=== PATIENT | female | born 1945 | race Caucasian/White ===

== ENCOUNTER → 2016-09-08 | Outpatient (CLI) | payer MEDICARE, OTHER ==
[~2016-09-08] MED LIST: ACETAMINOPHEN-H1 TA2 PO; ADVAIR 250/501 EA; ADVAIR 250/501 EA INH; ALBUTEROL SULFATE; ALBUTEROL0.09 MG/A2 INH; ALBUTEROL0.09 MG/A3 INH; AMOXIL500 MG PO; AUGMENTIN 875 M1 TAB PO; CALTRATE 600+D1 EACH PO; CALTRATE PLUS1 TAB; CALTRATE PLUS1 TAB PO; CARDIZEM; CARDIZEM CD180 MG PO; CARDIZEM CD240 MG PO; CARDIZEM LA240 MG PO; CEROVITE ADVANC1 TAB PO; CIPRO XR500 MG PO; COUMADIN3 M1 PO; Coumadin3 MG PO; ENALAPRIL20 MG PO; FERROUS SULFAT325 MG PO; FLEXERIL10 MG; FLEXERIL10 MG PO; GLIPIZIDE10 MG PO; HUMULIN R100 U/ML; HUMULIN R100 U/ML SC; HYDROCODONE BIT1 T11 PO; KLOR-CON 1010 MEQ PO; LANOXIN0.125 MG PO; LASIX40 MG PO; LEUCOVORIN CALCI5 MG PO; MEDROL DOSEPAK4 MG PO; METFORMIN HCL1000 MG PO; METHOTREXATE2.5 M1; METHOTREXATE2.5 M1 PO; METHOTREXATE2.5 MG PO; NOVOLIN 701 UNIT/0.0 SC; NOVOLOG MIX 70/33 ML SC; PERCOCET 325 MG1 TA2 PO; PRILOSEC20 MG PO; ROBITUSSIN AC 110 ML PO; VENTOLIN 02.5 MG/3 M NEB; VICODIN 5/500 505 MG; VITAMIN D2000 IU PO; Ventolin 02.5 MG/3 M INH; WELLCOVORIN5 MG PO; [UNRECOGNIZED DRUG - OTHER]
[2016-09-08 12:17] LABS: BASO # 0.1 10*3/uL (0.0-0.1); BASO % 0.5 % (0.0-1.0); EOS # 0.2 10*3/uL (0.0-0.4); EOS % 2.3 % (1.0-4.0); HEMATOCRIT 39.2 % (37.0-47.0); HEMOGLOBIN 12.2 g/dl (12.0-16.0); IG # 0.1 10*3/uL (0.0-0.1); LYMPH # 1.4 10*3/uL (1.3-4.4); LYMPH % 14.8 % (27.0-41.0); MEAN CELL VOLUME 88.9 fl (81.0-99.0); MEAN CORPUSCULAR HGB 27.7 pg (27.0-31.0); MEAN CORPUSCULAR HGB CONC 31.1 g/dl (33.0-37.0); MEAN PLATELET VOLUME 9.5 fl (9.6-12.3); MONO # 0.9 10*3/uL (0.1-1.0); MONO % 9.5 % (3.0-9.0); NEUT # 6.7 10*3/uL (2.3-7.9); NEUT % 72.4 % (47.0-73.0); PLATELET COUNT AUTOMATED 220 10*3/uL (130-400); RED BLOOD COUNT 4.41 10*6/uL (4.10-5.10); RED CELL DISTRI WIDTH 17.2 % (0-14.5); WHITE BLOOD COUNT 9.2 10*3/uL (4.8-10.8)
[2016-09-08 12:44] LABS: POTASSIUM 4.4 mmol/L (3.5-5.1)
== END | disposition home or self-care (01) ==
LOC: LAB 12:01
PROVIDERS: Specialist
DX: R94.4 Abnormal results of kidney function studies (principal); M05.79 Rheumatoid arthritis with rheumatoid factor of multiple sites without organ or systems involvement; Z79.899 Other long term (current) drug therapy

== ENCOUNTER → 2016-12-20 | Outpatient (CLI) | payer MEDICARE, OTHER ==
[2016-12-20 15:10] LABS: BASO # 0.1 10*3/uL (0.0-0.1); BASO % 0.6 % (0.0-1.0); EOS # 0.2 10*3/uL (0.0-0.4); EOS % 1.9 % (1.0-4.0); HEMATOCRIT 39.2 % (37.0-47.0); HEMOGLOBIN 12.4 g/dl (12.0-16.0); IG # 0.1 10*3/uL (0.0-0.1); LYMPH # 1.7 10*3/uL (1.3-4.4); LYMPH % 18.6 % (27.0-41.0); MEAN CELL VOLUME 86.9 fl (81.0-99.0); MEAN CORPUSCULAR HGB 27.5 pg (27.0-31.0); MEAN CORPUSCULAR HGB CONC 31.6 g/dl (33.0-37.0); MEAN PLATELET VOLUME 10.2 fl (9.6-12.3); MONO # 0.9 10*3/uL (0.1-1.0); MONO % 9.9 % (3.0-9.0); NEUT # 6.1 10*3/uL (2.3-7.9); NEUT % 67.9 % (47.0-73.0); PLATELET COUNT AUTOMATED 207 10*3/uL (130-400); RED BLOOD COUNT 4.51 10*6/uL (4.10-5.10); RED CELL DISTRI WIDTH 16.9 % (0-14.5)
[2016-12-20 15:27] LABS: POTASSIUM 4.1 mmol/L (3.5-5.1)
== END | disposition home or self-care (01) ==
LOC: LAB 14:43
PROVIDERS: Specialist
DX: R94.4 Abnormal results of kidney function studies (principal)

== ENCOUNTER → 2017-01-18 | Outpatient (CLI) | payer MEDICARE, OTHER | END | disposition home or self-care (01) | LOC: MRI 10:39 → MAMMO 01-27 13:30 → MRI 01-30 10:00 | DX: M48.06 Spinal stenosis, lumbar region (principal); M51.26 Other intervertebral disc displacement, lumbar region; R29.6 Repeated falls ==

== ENCOUNTER → 2017-01-26 | Outpatient (CLI) | payer MEDICARE, OTHER | END | disposition home or self-care (01) | LOC: MAMMO 12:59 | DX: Z12.31 Encounter for screening mammogram for malignant neoplasm of breast (principal) ==

== ENCOUNTER → 2017-03-23 | Outpatient (CLI) | payer MEDICARE, OTHER ==
[2017-03-23 12:39] LABS: BASO # 0.1 10*3/uL (0.0-0.1); BASO % 0.4 % (0.0-1.0); EOS # 0.2 10*3/uL (0.0-0.4); EOS % 1.6 % (1.0-4.0); HEMATOCRIT 40.1 % (37.0-47.0); HEMOGLOBIN 12.6 g/dl (12.0-16.0); LYMPH # 1.9 10*3/uL (1.3-4.4); LYMPH % 14.4 % (27.0-41.0); MEAN CELL VOLUME 89.7 fl (81.0-99.0); MEAN CORPUSCULAR HGB 28.2 pg (27.0-31.0); MEAN CORPUSCULAR HGB CONC 31.4 g/dl (33.0-37.0); MEAN PLATELET VOLUME 10.5 fl (9.6-12.3); NEUT # 9.8 10*3/uL (2.3-7.9); NEUT % 74.8 % (47.0-73.0); PLATELET COUNT AUTOMATED 227 10*3/uL (130-400); RED BLOOD COUNT 4.47 10*6/uL (4.10-5.10); RED CELL DISTRI WIDTH 17.1 % (0-14.5)
[2017-03-23 13:00] LABS: CREATININE 1.03 mg/dL (0.55-1.02); SGOT/AST 13 IU/L (3-35); SGPT/ALT 19 U/L (12-78)
== END | disposition home or self-care (01) ==
LOC: LAB 11:55
PROVIDERS: Specialist
DX: M06.841 Other specified rheumatoid arthritis, right hand (principal); M06.842 Other specified rheumatoid arthritis, left hand; Z79.899 Other long term (current) drug therapy

== ENCOUNTER → 2017-06-21 | Outpatient (CLI) | payer MEDICARE, OTHER ==
[2017-06-21 14:20] LABS: BASO # 0.1 10*3/uL (0.0-0.1); BASO % 0.6 % (0.0-1.0); EOS # 0.2 10*3/uL (0.0-0.4); EOS % 1.5 % (1.0-4.0); HEMATOCRIT 39.9 % (37.0-47.0); HEMOGLOBIN 12.8 g/dl (12.0-16.0); LYMPH # 1.5 10*3/uL (1.3-4.4); MEAN CELL VOLUME 91.1 fl (81.0-99.0); MEAN CORPUSCULAR HGB 29.2 pg (27.0-31.0); MEAN CORPUSCULAR HGB CONC 32.1 g/dl (33.0-37.0); MEAN PLATELET VOLUME 10.7 fl (9.6-12.3); MONO # 0.9 10*3/uL (0.1-1.0); NEUT # 8.7 10*3/uL (2.3-7.9); NEUT % 75.7 % (47.0-73.0); PLATELET COUNT AUTOMATED 235 10*3/uL (130-400); RED BLOOD COUNT 4.38 10*6/uL (4.10-5.10); RED CELL DISTRI WIDTH 16.5 % (0-14.5); WHITE BLOOD COUNT 11.5 10*3/uL (4.8-10.8)
[2017-06-21 14:32] LABS: CREATININE 1.17 mg/dL (0.55-1.02)
== END | disposition home or self-care (01) ==
LOC: LAB 12:59
PROVIDERS: Specialist
DX: M06.9 Rheumatoid arthritis, unspecified (principal); Z79.899 Other long term (current) drug therapy

== ENCOUNTER 2017-07-07 10:13 | Emergency (ER) | payer MEDICARE, OTHER ==
[~2017-07-07] VITALS: Ht 162.5 cm; Wt 108.4 kg
[2017-07-07 10:37] LABS: BASO % 0.3 % (0.0-1.0); HEMATOCRIT 37.3 % (37.0-47.0); HEMOGLOBIN 12.1 g/dl (12.0-16.0); LYMPH # 0.3 10*3/uL (1.3-4.4); LYMPH % 4.7 % (27.0-41.0); MEAN CORPUSCULAR HGB 28.5 pg (27.0-31.0); MEAN CORPUSCULAR HGB CONC 32.4 g/dl (33.0-37.0); MEAN PLATELET VOLUME 10.1 fl (9.6-12.3); MONO # 0.9 10*3/uL (0.1-1.0); MONO % 14.2 % (3.0-9.0); NEUT # 5.1 10*3/uL (2.3-7.9); NEUT % 79.4 % (47.0-73.0); PLATELET COUNT AUTOMATED 173 10*3/uL (130-400); RED BLOOD COUNT 4.24 10*6/uL (4.10-5.10); RED CELL DISTRI WIDTH 16.3 % (0-14.5); WHITE BLOOD COUNT 6.4 10*3/uL (4.8-10.8)
[2017-07-07 10:43] LABS: INTERNATIONAL NORM RATIO 1.7 (2.0-3.5)
[2017-07-07 10:53] LABS: ALBUMIN 3.2 gm/dl (3.1-4.5); ALKALINE PHOSPHATASE 88 U/L (45-117); BUN 16 mg/dl (7-24); CHLORIDE 99 mmol/L (98-107); SGOT/AST 27 IU/L (3-35); SGPT/ALT 20 U/L (12-78); SODIUM 134 mmol/L (136-145); TOTAL PROTEIN 7.6 gm/dL (6.4-8.2)
[2017-07-07 10:54] LABS: TROPONIN I 0.022 ng/ml (<0.045)
[2017-07-07 11:05] LABS: DIGOXIN 0.48 ng/ml (0.8-2.0)
[2017-07-07 11:44] LABS: BILIRUBIN NEGATIVE (NEGATIVE); BLOOD 2+ (NEGATIVE); CLARITY SL CLOUDY (CLEAR); COLOR YELLOW (YELLOW); GLUCOSE NEGATIVE (NEGATIVE); KETONE TRACE (NEGATIVE); LEUKO ESTERASE NEGATIVE (NEGATIVE); NITRITE NEGATIVE (NEGATIVE); SPECIFIC GRAVITY 1.015 (1.005-1.030); UROBILINOGEN 0.2 E.U./dl (0.2-1.0)
[2017-07-07 12:08] LABS: BACTERIA 2+; WBC 0-2 wbc/hpf (0-5)
[2017-07-07] MEDS ORDERED: TAMIFLU 75MG CA75 MG PO (13:31)
[2017-07-07 14:00] VITALS: BP 168/89
== END 2017-07-07 13:59 | disposition home or self-care (01) ==
LOC: ED 10:13
PROVIDERS: Nurse Practitioner Family
DX: J10.1 Influenza due to other identified influenza virus with other respiratory manifestations (principal); G89.29 Other chronic pain; M25.511 Pain in right shoulder; Z98.890 Other specified postprocedural states; Z96.652 Presence of left artificial knee joint; Z79.899 Other long term (current) drug therapy; Z79.01 Long term (current) use of anticoagulants; Z79.4 Long term (current) use of insulin; Z88.6 Allergy status to analgesic agent; Z91.041 Radiographic dye allergy status; Z88.1 Allergy status to other antibiotic agents

== ENCOUNTER → 2017-09-20 | Outpatient (CLI) | payer MEDICARE, OTHER ==
[~2017-09-20] MED LIST changes: +TAMIFLU 75MG CA75 MG PO
[2017-09-20 15:43] LABS: BASO # 0.1 10*3/uL (0.0-0.1); BASO % 0.6 % (0.0-1.0); EOS # 0.2 10*3/uL (0.0-0.4); EOS % 1.8 % (1.0-4.0); HEMOGLOBIN 12.7 g/dl (12.0-16.0); LYMPH # 2.3 10*3/uL (1.3-4.4); LYMPH % 17.7 % (27.0-41.0); MEAN CELL VOLUME 91.7 fl (81.0-99.0); MEAN CORPUSCULAR HGB 29.1 pg (27.0-31.0); MEAN CORPUSCULAR HGB CONC 31.8 g/dl (33.0-37.0); MEAN PLATELET VOLUME 10.1 fl (9.6-12.3); MONO # 1.2 10*3/uL (0.1-1.0); MONO % 9.1 % (3.0-9.0); NEUT # 9.1 10*3/uL (2.3-7.9); NEUT % 69.4 % (47.0-73.0); PLATELET COUNT AUTOMATED 249 10*3/uL (130-400); RED BLOOD COUNT 4.36 10*6/uL (4.10-5.10); RED CELL DISTRI WIDTH 17.1 % (0-14.5); WHITE BLOOD COUNT 13.1 10*3/uL (4.8-10.8)
[2017-09-20 16:01] LABS: CREATININE 1.09 mg/dL (0.55-1.02)
== END | disposition home or self-care (01) ==
LOC: LAB 13:41 → MRI 14:00
PROVIDERS: Specialist
DX: M48.061 Spinal stenosis, lumbar region without neurogenic claudication (principal); M43.16 Spondylolisthesis, lumbar region; M47.896 Other spondylosis, lumbar region; M51.26 Other intervertebral disc displacement, lumbar region

== ENCOUNTER → 2017-12-26 | Outpatient (CLI) | payer MEDICARE, OTHER ==
[2017-12-26 15:00] LABS: BASO # 0.1 10*3/uL (0.0-0.1); BASO % 0.5 % (0.0-1.0); EOS # 0.2 10*3/uL (0.0-0.4); EOS % 1.7 % (1.0-4.0); HEMATOCRIT 39.1 % (37.0-47.0); HEMOGLOBIN 12.1 g/dl (12.0-16.0); LYMPH # 1.7 10*3/uL (1.3-4.4); LYMPH % 14.7 % (27.0-41.0); MEAN CELL VOLUME 94.4 fl (81.0-99.0); MEAN CORPUSCULAR HGB 29.2 pg (27.0-31.0); MEAN CORPUSCULAR HGB CONC 30.9 g/dl (33.0-37.0); MEAN PLATELET VOLUME 9.9 fl (9.6-12.3); MONO % 8.7 % (3.0-9.0); NEUT # 8.6 10*3/uL (2.3-7.9); NEUT % 72.8 % (47.0-73.0); PLATELET COUNT AUTOMATED 218 10*3/uL (130-400); RED BLOOD COUNT 4.14 10*6/uL (4.10-5.10); RED CELL DISTRI WIDTH 16.2 % (0-14.5); WHITE BLOOD COUNT 11.7 10*3/uL (4.8-10.8)
[2017-12-26 15:21] LABS: CREATININE 1.1 mg/dL (0.55-1.02)
== END | disposition home or self-care (01) ==
LOC: LAB 14:44
PROVIDERS: Specialist
DX: M06.9 Rheumatoid arthritis, unspecified (principal); Z79.899 Other long term (current) drug therapy

== ENCOUNTER → 2018-04-11 | Outpatient (CLI) | payer MEDICARE, OTHER ==
[2018-04-11 13:47] LABS: BASO # 0.1 10*3/uL (0.0-0.1); BASO % 0.6 % (0.0-1.0); EOS # 0.2 10*3/uL (0.0-0.4); EOS % 1.9 % (1.0-4.0); HEMATOCRIT 40.1 % (37.0-47.0); HEMOGLOBIN 12.3 g/dl (12.0-16.0); LYMPH # 1.6 10*3/uL (1.3-4.4); LYMPH % 14.9 % (27.0-41.0); MEAN CORPUSCULAR HGB 28.5 pg (27.0-31.0); MEAN CORPUSCULAR HGB CONC 30.7 g/dl (33.0-37.0); MEAN PLATELET VOLUME 10.5 fl (9.6-12.3); MONO % 9.1 % (3.0-9.0); NEUT # 7.6 10*3/uL (2.3-7.9); NEUT % 72.4 % (47.0-73.0); PLATELET COUNT AUTOMATED 238 10*3/uL (130-400); RED BLOOD COUNT 4.31 10*6/uL (4.10-5.10); RED CELL DISTRI WIDTH 16.5 % (0-14.5); WHITE BLOOD COUNT 10.5 10*3/uL (4.8-10.8)
[2018-04-11 14:08] LABS: CREATININE 1.11 mg/dL (0.55-1.02)
== END | disposition home or self-care (01) ==
LOC: LAB 13:03
PROVIDERS: Specialist
DX: M05.79 Rheumatoid arthritis with rheumatoid factor of multiple sites without organ or systems involvement (principal)

== ENCOUNTER → 2018-05-21 | Outpatient (CLI) | payer MEDICARE, OTHER ==
[2018-05-21 10:58] LABS: BASO # 0.1 10*3/uL (0.0-0.1); BASO % 0.8 % (0.0-1.0); EOS # 0.2 10*3/uL (0.0-0.4); EOS % 2.2 % (1.0-4.0); HEMATOCRIT 38.8 % (37.0-47.0); HEMOGLOBIN 12.3 g/dl (12.0-16.0); LYMPH # 1.5 10*3/uL (1.3-4.4); LYMPH % 14.5 % (27.0-41.0); MEAN CORPUSCULAR HGB 28.5 pg (27.0-31.0); MEAN CORPUSCULAR HGB CONC 31.7 g/dl (33.0-37.0); MEAN PLATELET VOLUME 10.2 fl (9.6-12.3); MONO # 0.7 10*3/uL (0.1-1.0); MONO % 7.2 % (3.0-9.0); NEUT # 7.6 10*3/uL (2.3-7.9); NEUT % 74.1 % (47.0-73.0); PLATELET COUNT AUTOMATED 243 10*3/uL (130-400); RED BLOOD COUNT 4.31 10*6/uL (4.10-5.10); RED CELL DISTRI WIDTH 16.6 % (0-14.5); WHITE BLOOD COUNT 10.3 10*3/uL (4.8-10.8)
[2018-05-21 11:28] LABS: ALBUMIN 3.1 gm/dl (3.1-4.5); CREATININE 1.11 mg/dL (0.55-1.02)
[2018-05-21 11:35] LABS: FREE T4 1.28 ng/dl (0.76-1.46); THYROID STIM HORMONE (HS) 1.65 uIU/ml (0.358-4.75); TOTAL PROTEIN 7.8 gm/dL (6.4-8.2)
[2018-05-21 11:51] LABS: VITAMIN D, 25-HYDROXY 54.4 ng/mL (30-100)
[2018-05-22 09:06] LABS: HEP B CORE AB TOTAL 006718 Negative (Negative); HEPATITIS B SURFACE AB 006395 Non Reactive (.); HEPATITIS B SURFACE AG Negative (Negative); HEPATITIS Be ANTIGEN 006619 Negative (Negative); HEPATITIS C AB 0.1 (0.0-0.9)
[2018-05-22 16:14] LABS: AB TO HEPATITIS Be AG 006635 Negative (Negative)
== END | disposition home or self-care (01) ==
LOC: LAB 10:12
PROVIDERS: Internal Medicine; Specialist
DX: M05.79 Rheumatoid arthritis with rheumatoid factor of multiple sites without organ or systems involvement (principal); E11.22 Type 2 diabetes mellitus with diabetic chronic kidney disease; I48.2 Chronic atrial fibrillation; N18.3 Chronic kidney disease, stage 3 (moderate); N39.0 Urinary tract infection, site not specified; R60.0 Localized edema; Z79.899 Other long term (current) drug therapy

== ENCOUNTER → 2018-08-30 | Outpatient (CLI) | payer MEDICARE, OTHER ==
[2018-08-30 12:50] LABS: BASO # 0.1 10*3/uL (0.0-0.1); BASO % 0.6 % (0.0-1.0); EOS # 0.3 10*3/uL (0.0-0.4); HEMATOCRIT 41.4 % (37.0-47.0); HEMOGLOBIN 12.7 g/dl (12.0-16.0); LYMPH # 1.6 10*3/uL (1.3-4.4); LYMPH % 17.2 % (27.0-41.0); MEAN CELL VOLUME 93.2 fl (81.0-99.0); MEAN CORPUSCULAR HGB 28.6 pg (27.0-31.0); MEAN CORPUSCULAR HGB CONC 30.7 g/dl (33.0-37.0); MEAN PLATELET VOLUME 9.7 fl (9.6-12.3); MONO # 1.2 10*3/uL (0.1-1.0); MONO % 12.4 % (3.0-9.0); NEUT # 6.3 10*3/uL (2.3-7.9); NEUT % 66.4 % (47.0-73.0); PLATELET COUNT AUTOMATED 214 10*3/uL (130-400); RED BLOOD COUNT 4.44 10*6/uL (4.10-5.10); RED CELL DISTRI WIDTH 17.2 % (0-14.5); WHITE BLOOD COUNT 9.6 10*3/uL (4.8-10.8)
[2018-08-30 13:15] LABS: CREATININE 1.22 mg/dL (0.55-1.02)
== END | disposition home or self-care (01) ==
LOC: LAB 12:30
PROVIDERS: Specialist
DX: M05.79 Rheumatoid arthritis with rheumatoid factor of multiple sites without organ or systems involvement (principal); I48.91 Unspecified atrial fibrillation

== ENCOUNTER → 2018-10-04 | Outpatient (CLI) | payer MEDICARE, OTHER ==
[2018-10-04 11:12] LABS: BASO # 0.1 10*3/uL (0.0-0.1); BASO % 0.6 % (0.0-1.0); EOS # 0.3 10*3/uL (0.0-0.4); EOS % 2.9 % (1.0-4.0); LYMPH # 1.7 10*3/uL (1.3-4.4); MEAN CELL VOLUME 91.9 fl (81.0-99.0); MEAN CORPUSCULAR HGB 27.8 pg (27.0-31.0); MEAN CORPUSCULAR HGB CONC 30.2 g/dl (33.0-37.0); MEAN PLATELET VOLUME 10.5 fl (9.6-12.3); MONO # 1.2 10*3/uL (0.1-1.0); MONO % 11.7 % (3.0-9.0); NEUT # 7.2 10*3/uL (2.3-7.9); PLATELET COUNT AUTOMATED 210 10*3/uL (130-400); RED BLOOD COUNT 4.68 10*6/uL (4.10-5.10); RED CELL DISTRI WIDTH 16.8 % (0-14.5); WHITE BLOOD COUNT 10.6 10*3/uL (4.8-10.8)
[2018-10-04 11:32] LABS: CREATININE 1.13 mg/dL (0.55-1.02)
== END | disposition home or self-care (01) ==
LOC: LAB 10:40
PROVIDERS: Specialist
DX: I48.91 Unspecified atrial fibrillation (principal); M05.79 Rheumatoid arthritis with rheumatoid factor of multiple sites without organ or systems involvement

== ENCOUNTER → 2018-12-27 | Outpatient (CLI) | payer MEDICARE, OTHER ==
[2018-12-27 12:37] LABS: BASO # 0.1 10*3/uL (0.0-0.1); BASO % 0.5 % (0.0-1.0); EOS # 0.3 10*3/uL (0.0-0.4); EOS % 2.2 % (1.0-4.0); HEMATOCRIT 41.5 % (37.0-47.0); HEMOGLOBIN 12.9 g/dl (12.0-16.0); LYMPH # 1.8 10*3/uL (1.3-4.4); LYMPH % 15.4 % (27.0-41.0); MEAN CELL VOLUME 93.9 fl (81.0-99.0); MEAN CORPUSCULAR HGB 29.2 pg (27.0-31.0); MEAN CORPUSCULAR HGB CONC 31.1 g/dl (33.0-37.0); MEAN PLATELET VOLUME 10.1 fl (9.6-12.3); MONO # 1.2 10*3/uL (0.1-1.0); NEUT # 8.2 10*3/uL (2.3-7.9); NEUT % 70.8 % (47.0-73.0); PLATELET COUNT AUTOMATED 225 10*3/uL (130-400); RED BLOOD COUNT 4.42 10*6/uL (4.10-5.10); RED CELL DISTRI WIDTH 17.4 % (0-14.5); WHITE BLOOD COUNT 11.6 10*3/uL (4.8-10.8)
[2018-12-27 12:41] LABS: CREATININE 1.23 mg/dL (0.55-1.02)
== END | disposition home or self-care (01) ==
LOC: LAB 11:47
PROVIDERS: Specialist
DX: I48.91 Unspecified atrial fibrillation (principal); M05.79 Rheumatoid arthritis with rheumatoid factor of multiple sites without organ or systems involvement; Z79.899 Other long term (current) drug therapy

== ENCOUNTER → 2019-02-12 | Outpatient (CLI) | payer MEDICARE, OTHER ==
[2019-02-12 14:18] LABS: HEMATOCRIT 42.2 % (37.0-47.0); HEMOGLOBIN 13.7 g/dl (12.0-16.0); MEAN CELL VOLUME 94.2 fl (81.0-99.0); MEAN CORPUSCULAR HGB 30.6 pg (27.0-31.0); MEAN CORPUSCULAR HGB CONC 32.5 g/dl (33.0-37.0); MEAN PLATELET VOLUME 10.9 fl (9.6-12.3); PLATELET COUNT AUTOMATED 252 10*3/uL (130-400); RED BLOOD COUNT 4.48 10*6/uL (4.10-5.10); RED CELL DISTRI WIDTH 16.8 % (0-14.5); WHITE BLOOD COUNT 11.6 10*3/uL (4.8-10.8)
[2019-02-12 14:25] LABS: CREATININE 1.33 mg/dL (0.55-1.02)
[2019-02-12 14:42] LABS: BASOPHILS 1 % (0-1); PLATELET SUFFICIENCY NORMAL (NORMAL); TOTAL CELLS COUNTED 100 #CELLS
== END | disposition home or self-care (01) ==
LOC: LAB 13:23
PROVIDERS: Specialist
DX: I48.91 Unspecified atrial fibrillation (principal); M05.79 Rheumatoid arthritis with rheumatoid factor of multiple sites without organ or systems involvement; Z79.899 Other long term (current) drug therapy

== ENCOUNTER → 2019-02-21 | Outpatient (CLI) | payer MEDICARE, OTHER, MEDICAID ==
[~2019-02-21] MED LIST changes: +BUMETANIDE1 MG PO; +HUMALOG 751 UNIT/0.0 SC; +KLOR-CON 1010 ME1 PO; -KLOR-CON 1010 MEQ PO; -LANOXIN0.125 MG PO; +LANOXIN250 MCG PO; +PROTONIX40 MG PO
[2019-02-21 16:33] LABS: CREATININE 1.27 mg/dL (0.55-1.02); POTASSIUM 4.3 mmol/L (3.5-5.1)
== END | disposition home or self-care (01) ==
LOC: LAB 15:37
PROVIDERS: Specialist
DX: R79.89 Other specified abnormal findings of blood chemistry (principal); R06.00 Dyspnea, unspecified; I51.7 Cardiomegaly

== ENCOUNTER 2019-02-28 12:06 | Inpatient (IN) | payer MEDICARE, OTHER ==
[~2019-02-28] VITALS: Ht 162.5 cm; Wt 106.6 kg
--- NOTE | ~2019-02-28 | EKG ---
[place], [place] ELECTROCARDIOGRAM REPORT NAME: ROXIE ANAYA UNIT #: [id number] ROOM: 406 DOCTOR: TOM DRAFT REPORT BIRTHDATE: [birth year] [facility] Test Date: 2019-03-01 Test Time: 19:39:31 Pat Name: ROXIE ANAYA Department: Room: [facility] 1 Gender: F [employer] Examiner: Tawnya Wilson : 1945 Requested By: ARMANDO RICHARDSON Order Number: [id number] Reading MD: Quang Fang MD Measurements Intervals [place] Rate: 75 P: VT: QRS: 38 QRSD: 114 T: 34 QT: 399 QTc: 446 Interpretive Statements Atrial fibrillation Incomplete right bundle branch block ST depr, consider ischemia, anterolateral lds Electronically Signed On 03-04-2019 17:57:02 PDT by Quang Fang MD CM:EKGRPT:ELECTROCARDIOGRAM REPORT 38 175 ARMANDO FRIED DRAFT REPORT ARMANDO RICHARDSON DO
--- NOTE | ~2019-02-28 | CON ---
[place], [place] REPORT OF CONSULTATION [id number] UNIT #: [id number] ROOM: 406 DOCTOR: TIARA MURRAY MD BIRTHDATE: [birth year] DOS: HISTORY OF PRESENT ILLNESS: A 73-year-old female admitted with shortness of breath and leg edema. The patient has been adequately diuresed and feeling a lot better. She had an echocardiogram done on the 03/01/2019 and the results are still pending. She denies any chest discomfort or palpitation. No previous history of coronary artery disease. PAST MEDICAL HISTORY: Significant for hypertension, diabetes mellitus, rheumatoid arthritis, chronic atrial fibrillation, on long-term use of anticoagulation, chronic low back pain and COPD. MEDICATIONS: Flexeril, digoxin, diltiazem, enalapril, Protonix. SOCIAL HISTORY: Nonsmoker. REVIEW OF SYSTEMS: CONSTITUTIONAL: No fever, no chills. HEENT: No visual disturbances or hearing problems. CARDIOVASCULAR: As per HPI. GASTROINTESTINAL: No nausea, no vomiting. GENITOURINARY: No dysuria. EXTREMITIES: Does have extremities edema. PHYSICAL EXAMINATION: VITAL SIGNS: Blood pressure today is 120/70, irregularly irregular, rate controlled. HEENT: Unremarkable. LUNGS: Diminished air entry. HEART: Sounds are irregular. NEUROLOGIC: Stable. IMAGING: As mentioned, the echocardiogram report is still pending. LABORATORY DATA: Shows hemoglobin 13.1, hematocrit 40.5. Electrolytes are normal. Creatinine is 1.5. I's and O's, the patient had positive 559. IMPRESSION: The patient with leg edema, chronic systolic congestive heart failure, chronic atrial fibrillation, probably diastolic, diabetes mellitus. RECOMMENDATIONS: Continue the present medication. Continue diuretics. We will try to get the echo report and we will follow up. [place], [place] REPORT OF CONSULTATION [id number] UNIT #: [id number] ROOM: 406 DOCTOR: TIARA MURRAY MD BIRTHDATE: [birth year] TIARA MURRAY MD CM:CONSTR:REPORT OF CONSULTATION 1137 03/03/19 1915 interface
--- NOTE | ~2019-02-28 | WRIGHTHP ---
[place], [place] PATIENT HISTORY AND PHYSICAL EXAM NAME: ROXIE ANAYA [facility] #: [id number] UNIT #: [id number] ROOM: 406 DOCTOR: NILA FLYNN MD BIRTHDATE: [birth year] DOS: 02/28/2019 HISTORY OF PRESENT ILLNESS: The patient is 73 years old, very well known to us, comes in with complaints of increasing shortness of breath and leg edema. She says for the last 2-3 weeks, her swelling has gotten worse and she has been increasingly short of breath and she has not been able to get out of the house much. She denies having any chest pains or palpitations, does not have any fever or chills, does not have any abdominal pain, nausea, or emesis. She was started on Humira recently for rheumatoid arthritis and it was discontinued because of worsening kidney functions. PAST MEDICAL HISTORY: Significant for: 1. Benign hypertension. 2. Chronic kidney disease. 3. Type 2 diabetes mellitus, insulin-dependent with diabetic nephropathy. 4. Rheumatoid arthritis. 5. Chronic atrial fibrillation, on long-term use of anticoagulants. 6. Chronic low back pain. 7. COPD. MEDICATIONS: Medications that the patient currently is on are Flexeril 10 daily p.r.n.; digoxin 0.125 mcg every other day; diltiazem 120 daily; enalapril 2.5 daily; iron 325 t.i.d.; [place] 5 twice a day; leucovorin 5 once a week; methotrexate 2.5 mg 10 tablets once a week; Protonix 40 daily; potassium 10 daily; vitamin D 2000 units daily; warfarin 1.5 Monday, Monday, Monday, and 3 mg Monday, Monday, Monday; Humalog 75/25 subcutaneous twice a day. SOCIAL HISTORY: Nonsmoker, does not use any alcohol. PHYSICAL EXAMINATION: GENERAL: The patient is awake and alert and oriented, in mild respiratory distress. After walking, she became quite short of breath. VITAL SIGNS: Heart rate went into the low 100s and the pulse ox dropped into the low 90s. Blood pressure is 150/64, pulse 64, respirations 18, temperature 97.3. LUNGS: Diminished breath sounds. HEART: Irregular, heart rate controlled. ABDOMEN: Obese, soft. EXTREMITIES: 2+ pitting edema bilaterally. ASSESSMENT AND PLAN: 1. The patient presents with exertional shortness of breath and swelling of the lower legs, possibly from volume overload, could be diastolic congestive heart failure. Echocardiogram is ordered. The patient is placed on IV diuretics, rule out myocardial infarction protocol was ordered and consultation with Dr. Fang obtained. 2. Chronic kidney disease from diabetic nephropathy, which is pretty much stable. GFR 39 on admission, this morning is 43. Continue same dose of diuretics. [place], [place] PATIENT HISTORY AND PHYSICAL EXAM [facility]: [id number] #: [id number] ROOM: [facility] DOCTOR: NILA FLYNN MD BIRTHDATE: [birth year] 3. Chronic atrial fibrillation, on long-term use of Coumadin. Protime was checked on admission with an INR of 1.8. We will reorder the protime for tomorrow. 4. Type 2 diabetes mellitus, insulin-dependent. Blood sugars are being checked twice daily and coverage scale given. INLA FLYNN MD CM:HISPHYS:PATIENT HISTORY AND PHYSICAL EXAMINATION 1200 [id number] NILA FLYNN MD 03/01/19 1213 interface
--- NOTE | ~2019-02-28 | PR ---
[place], [place] PROGRESS NOTE NAME: ROXIE ANAYA [facility] #: [id number] UNIT #: [id number] ROOM: 406 DOCTOR: MORGAN SMITH MD BIRTHDATE: [birth year] DOS: 03/02/2019 SUBJECTIVE: The patient says swelling in her feet is coming down and her breathing is improving. PHYSICAL EXAMINATION: VITAL SIGNS: Blood pressure 120/76, heart rate of 89 beats per minute, breathing 16 times per minute, temperature 98 degrees Fahrenheit. GENERAL APPEARANCE: The patient is alert and oriented x 3, in no visible distress. Obesity. HEENT AND NECK: Exam within normal limits. CARDIOVASCULAR SYSTEM: Heart rate is regular in rate and rhythm. S1 and S2 normally audible. LUNGS: Clear to auscultation. ABDOMEN: Soft, nontender. No obvious organomegaly. Bowel sounds are present. EXTREMITIES: Without significant cyanosis or edema. IMPRESSION: 1. The patient with acute/chronic systolic type congestive heart failure related to chronic atrial fibrillation, improving with diuresis. Serum electrolytes are being monitored, symptomatically improving. 2. Chronic kidney disease and diabetic nephropathy, stage 3B. 3. Type 2 diabetes mellitus. Blood sugars being monitored and treated. 4. Chronic atrial fibrillation. Heart rates are controlled. The patient anticoagulated with Coumadin. Protime is to be monitored. The patient's INR is subtherapeutic at 1.5. I will give her extra dose. MORGAN SMITH MD CM:PNTRANS [id number] MORGAN SMITH MD 03/02/19 2315 interface
--- NOTE | ~2019-02-28 | PR ---
[place], [place] PROGRESS NOTE NAME: ROXIE ANAYA [facility] #: [id number] UNIT #: [id number] ROOM: 406 DOCTOR: LUIZ COBB MD BIRTHDATE: [birth year] DOS: 03/04/2019 I am seeing this patient of Dr. Cardenas. SUBJECTIVE: This patient had IV diuretic and she diuresed a lot. She has no shortness of breath, she has some swelling in the legs, but no PND, orthopnea. She has some exertional shortness of breath and also has morbid obesity. She does not complain of any cough or palpitations. PHYSICAL EXAMINATION: GENERAL: The patient is moderately obese. She is alert and oriented. She has oxygen on. VITAL SIGNS: Pulse is irregular at 80 beats per minute, blood pressure 138/74. NECK: Normal JVP. LUNGS: Breath sounds are mildly diminished with no adventitious sounds are present. EXTREMITIES: There is trace edema of the lower extremities. IMPRESSION: 1. This patient has chronic atrial fibrillation with controlled rate. 2. Probable diastolic heart failure, which seemed to be decompensated. Diuretics can be switched over to oral preparation. LUIZ COBB MD CM:PNTRANS [id number] LUIZ COBB MD 03/04/19 7148 interface
--- NOTE | ~2019-02-28 | PR ---
[place], [place] PROGRESS NOTE NAME: ROXIE ANAYA [facility] #: [id number] UNIT #: [id number] ROOM: 406 DOCTOR: NILA FLYNN MD BIRTHDATE: [birth year] DOS: 03/04/2019 SUBJECTIVE: The patient is doing well without any complaints. OBJECTIVE: VITAL SIGNS: Graphic trend shows a blood pressure of 138/74, pulse of 76, respirations 18, temperature 98.5. LUNGS: Clear. HEART: Irregular. ABDOMEN: Obese, soft, nontender. EXTREMITIES: Without any edema. LABORATORY DATA: Protime is 22.0, this morning that is the only lab we have this morning. ASSESSMENT AND PLAN: 1. Acute diastolic congestive heart failure as well as swelling in the lower legs, which have improved. Rule out CT protocol was negative. Echocardiogram is still pending at the time of dictation. 2. Chronic atrial fibrillation, on long-term use of anticoagulants. Protime is therapeutic. 3. Type 2 diabetes mellitus. Blood sugars controlled. The plan is to discharge home today. Further adjustments in medications will be made once we have the echo report back. NILA FLYNN MD CM:PNTRANS 08 05 NILA FLYNN MD 03/04/192102 interface
--- NOTE | ~2019-02-28 | DS ---
[place], [place] DISCHARGE SUMMARY NAME: ROXIE ANAYA [facility] #: [id number] UNIT #: [id number] ROOM: 406 DOCTOR: NILA FLYNN MD BIRTHDATE: [birth year] DOS: 03/04/2019 DIAGNOSES: 1. Acute diastolic congestive heart failure. 2. Swelling of the lower legs. 3. Chronic kidney disease. 4. Type 2 diabetes mellitus, insulin-dependent. 5. Diabetic nephropathy. 6. Rheumatoid arthritis, on disease modifying agents as well as biologics. 7. Chronic atrial fibrillation, long-term use of anticoagulants. 8. Chronic low back pain. 9. Chronic obstructive pulmonary disease. DISCHARGE MEDICATIONS: Lasix 60 daily, digoxin 0.125 every other day, enalapril 2.5 daily, potassium 10 daily, warfarin 3 mg 3 times a week and 1.5 mg once a week, iron 325 t.i.d., vitamin D 2000 units daily, Flexeril 10 daily p.r.n., [place] 5 b.i.d. p.r.n., methotrexate 2.5 once a week, leucovorin 5 mg weekly on , insulin 75/25 at 20 units twice a day, Protonix 40 daily. HOSPITAL COURSE: This patient is 73 years old, comes in with complaints of increasing difficulty breathing and swelling of the lower legs. After admission, the patient was placed on IV diuretics. Echocardiogram was ordered. Check LV function. Three sets of troponins were done, which were negative. She has chronic kidney disease with diuretics. The kidney functions have worsened slightly. She has diuresed nicely and her swelling of the lower legs have resolved. She is no longer short of breath. Echocardiogram results are not available at the time of dictation. The patient is stable at the time of dictation. Cardiology already saw her and has not recommended any new treatment plan. The plan is to discharge, follow up as an outpatient, will need to have routine blood work as an outpatient in a few days. [place], [place] DISCHARGE SUMMARY [facility] [id number] #: [id number] ROOM: 406 DOCTOR: NILA FLYNN MD BIRTHDATE: [birth year] NILA FLYNN MD CM:TRINA 0857 NILA FLYNN MD 03/04/19 0940 interface
--- NOTE | ~2019-02-28 | PR ---
[place], [place] PROGRESS NOTE NAME: ROXIE ANAYA [facility] #: [id number] UNIT #: [id number] ROOM: 406 DOCTOR: MORGAN SMITH MD BIRTHDATE: [birth year] DOS: 03/03/2019 OBJECTIVE: GENERAL APPEARANCE: The patient is alert and oriented x 3, in no visible distress. Morbid obesity and generalized weakness. VITAL SIGNS: Blood pressure 108/59, heart rate of 80 beats per minute, breathing 18 times per minute, temperature 98 degrees Fahrenheit. HEENT AND NECK: Exam within normal limits. CARDIOVASCULAR SYSTEM: Heart rate is regular in rate and rhythm. S1 and S2 normally audible. LUNGS: Clear to auscultation. ABDOMEN: Soft, nontender. No obvious organomegaly. Bowel sounds are present. EXTREMITIES: Without significant cyanosis or edema. IMPRESSION: 1. The patient with acute over chronic systolic type congestive heart failure with chronic atrial fibrillation, improving with diuresis. Serum electrolytes are being monitored. BUN and creatinine was 47 and 1.5. 2. Chronic atrial fibrillation, subtherapeutic INR. The patient was given extra Coumadin yesterday. INR is at 1.8 and increasing towards therapeutic range. 3. Morbid obesity. The patient is working with Dietary. 4. Type 2 diabetes mellitus. Blood sugars being monitored and controlled. 5. Diabetic nephropathy and chronic kidney disease stage 3b being monitored. MORGAN SMITH MD CM:PNTRANS [id number] MORGAN SMITH MD 03/04/19 0145 interface
[~2019-02-28 12:06] MED LIST changes: -BUMETANIDE1 MG PO; -HUMALOG 751 UNIT/0.0 SC; -PROTONIX40 MG PO
[2019-02-28 12:25] VITALS: BP 136/54
--- NOTE | 2019-02-28 12:25 | NUR ---
A 73, admitted to , under the services of NILA Choi MD with a diagnosis of CHF. Chief complaint is SOB. Patient arrived via WHEELCHAIR from [place]. Monitor applied. Initial assessment completed. Vital signs taken and recorded. NILA CHOI MD notified of admission to the unit. Orders received. See assessment for past medical history, medications and allergies. Patient and/or family oriented to unit. [facility] visitation policy reviewed. Clothing/patient valuable form completed. LACEY HENNING
--- NOTE | 2019-02-28 13:14 | NUR ---
CALLED DR. FLYNN ANSWERING SERVICE FOR ADMISSION ORDERS. NO ANSWER. WILL TRY AGAIN IN A FEW MINUTES.
[2019-02-28] MEDS ORDERED: HUMALOG 751 UNIT/0.0 SC (13:32)
[2019-02-28] MEDS ORDERED: BUMETANIDE1 MG PO (13:33)
[2019-02-28] MEDS ORDERED: PROTONIX40 MG PO (13:33)
--- NOTE | 2019-02-28 13:36 | NUR ---
ATTEMPTED TO CALL DR. FLYNN OFFICE FOR SECOND TIME WITH NO ANSWER. WILL TRY AGAIN.
--- NOTE | 2019-02-28 14:00 | NUR ---
Spoke with Dr. Gerardo admission orders received.
--- NOTE | 2019-02-28 14:20 | NUR ---
Dr. Gerardo ordered lasix for pt iv. States to continue home meds as well. Pt is also on bumex at home. I spoke with pt primary nurse Zohreh regarding this, unsure if Dr. Gerardo wants both. She states she will clarify with Dr. Gerardo.
[2019-02-28 14:22] LABS: BASO % 0.3 % (0.0-1.0); EOS # 0.1 10*3/uL (0.0-0.4); EOS % 0.7 % (1.0-4.0); HEMATOCRIT 39.7 % (37.0-47.0); HEMOGLOBIN 12.9 g/dl (12.0-16.0); LYMPH # 1.4 10*3/uL (1.3-4.4); LYMPH % 9.8 % (27.0-41.0); MEAN CELL VOLUME 94.7 fl (81.0-99.0); MEAN CORPUSCULAR HGB 30.8 pg (27.0-31.0); MEAN CORPUSCULAR HGB CONC 32.5 g/dl (33.0-37.0); MEAN PLATELET VOLUME 9.4 fl (9.6-12.3); MONO % 7.3 % (3.0-9.0); NEUT # 11.1 10*3/uL (2.3-7.9); NEUT % 80.8 % (47.0-73.0); PLATELET COUNT AUTOMATED 204 10*3/uL (130-400); RED BLOOD COUNT 4.19 10*6/uL (4.10-5.10); RED CELL DISTRI WIDTH 16.6 % (0-14.5); WHITE BLOOD COUNT 13.8 10*3/uL (4.8-10.8)
[2019-02-28 14:30] LABS: INTERNATIONAL NORM RATIO 1.8 (2.0-3.5)
[2019-02-28 14:51] LABS: CREATININE 1.34 mg/dL (0.55-1.02); POTASSIUM 4.1 mmol/L (3.5-5.1)
[2019-02-28 16:00] VITALS: BP 114/55
--- NOTE | 2019-02-28 16:00 | NUR ---
CLARIFIED BUMEX WITH DR. FLYNN. INSTRUCTED TO DC BUMEX.
[2019-02-28 20:00] VITALS: BP 124/61
--- NOTE | 2019-02-28 22:41 | NUR ---
NORCO GIVEN PRN ORDERED FOR 8/10 PAIN IN LEGS. WILL MONITOR
[2019-03-01] VITALS: BP 128/62
--- NOTE | 2019-03-01 00:20 | NUR ---
EARLIER PAIN MED EFFECTIVE. RESTING IN BED WITH EYES CLOSED. APPEARS TO BE SLEEPING. HOB ELEVATED. SIDE RAILS UP X'S 2. CALL LIGHT IN REACH. RESPIRATIONS EASY. NO DISTRESS NOTED.
--- NOTE | 2019-03-01 04:09 | NUR ---
REMAINS SLEEPING WITHOUT DISTRESS.
[2019-03-01 06:00] LABS: CREATININE 1.22 mg/dL (0.55-1.02); POTASSIUM 4.4 mmol/L (3.5-5.1)
--- NOTE | 2019-03-01 06:07 | NUR ---
SLEPT WELL THIS SHIFT. REMAINS WITHOUT C/O'S. CONDITION GUARDED.
[2019-03-01 06:19] LABS: BASO # 0.1 10*3/uL (0.0-0.1); BASO % 0.5 % (0.0-1.0); EOS # 0.1 10*3/uL (0.0-0.4); EOS % 0.9 % (1.0-4.0); HEMATOCRIT 38.7 % (37.0-47.0); HEMOGLOBIN 12.4 g/dl (12.0-16.0); LYMPH # 1.4 10*3/uL (1.3-4.4); LYMPH % 14.4 % (27.0-41.0); MEAN CELL VOLUME 94.4 fl (81.0-99.0); MEAN CORPUSCULAR HGB 30.2 pg (27.0-31.0); MEAN PLATELET VOLUME 10.2 fl (9.6-12.3); MONO # 0.7 10*3/uL (0.1-1.0); MONO % 7.1 % (3.0-9.0); NEUT # 7.4 10*3/uL (2.3-7.9); NEUT % 76.1 % (47.0-73.0); PLATELET COUNT AUTOMATED 182 10*3/uL (130-400); RED CELL DISTRI WIDTH 16.5 % (0-14.5); WHITE BLOOD COUNT 9.8 10*3/uL (4.8-10.8)
[2019-03-01 08:00] VITALS: BP 150/64
--- NOTE | 2019-03-01 08:00 | NUR ---
Patient resting quietly with no c/o discomfort. Respirations easy and regular. Vital signs stable. No overt distress. JARRETT JOAQUIN
--- NOTE | 2019-03-01 09:33 | NUR ---
MESSAGE LEFT WITH CUFF PRESSER AT ANOTHER FACILITY, WHO ANSWERED FOR DR COBB, FOR NEW CONSULT STATING THEY WILL GIVE HIM THE MESSAGE.
--- NOTE | 2019-03-01 11:00 | NUR ---
Jd Edwards Developer in to talk to patient. Patient states lives at home alone with her family checking in on her. There are 5 steps in the home. Physician: Dr. Stephanie Gerardo Pharmacy: [facility] Home health services: none Patient's level of ADLs: MINIMAL ASSIST Patient has working utilities: yes DME: cane Follow-up physician's appointment after d/c: she prefers to make her own follow up appt after discharge Does patient want to access PORTAL?: no Discharge plan discussed with patient. She lives at home alone with her family checking in on her. She is independent in her ADLs and ambulates with a cane. Discussed short term SNF and home health care services and she refuses. She would like to see if her insurance would pay for a hand grabber. Discussed with patient she would be better off going to the [employer] store and buying one rather than going through her insurance because Medicare only pays for any kind of equipment every 5 years. She verbalized an understanding. When medically stable she will be discharged to home. She states her sister will transport on discharge. VIKASH WALL
[2019-03-01 12:00] VITALS: BP 133/83
[2019-03-01 16:00] VITALS: BP 103/57
[2019-03-01 20:00] VITALS: BP 116/69
--- NOTE | 2019-03-01 20:00 | NUR ---
AAOX3 SITTING AT BEDSIDE. HEP LOCK INTACT TO RIGHT ARM; SITE ASYMPTOMATIC. LUNGS CLEAR WITH NO COUGH NOTED. PT. STATES THAT SHE HAD A BOWEL MOVEMENT TODAY. +2 PITTING EDEMA NOTED TO BILTERAL LOWER EXTREMITIES. PT. VOICES NO C/O AT THIS ITME. CALL LIGHT WITHIN REACH.
--- NOTE | 2019-03-01 21:31 | NUR ---
MEDICATED WITH NORCO FOR C/O GENERALIZED DISCOMFORT RATED A 6/10
--- NOTE | 2019-03-01 22:00 | NUR ---
BLOOD SUGAR 172; COVERAGE PER EMAR.
[2019-03-02] VITALS: BP 119/70
--- NOTE | 2019-03-02 01:00 | NUR ---
RESTING IN BED WITH EYES CLOSED. PAIN MEDICATION APPARENTLY EFFECTIVE.
--- NOTE | 2019-03-02 06:30 | NUR ---
BLOOD SUGAR 153; COVERAGE PER EMAR.
[2019-03-02 06:59] LABS: BASO % 0.5 % (0.0-1.0); EOS # 0.1 10*3/uL (0.0-0.4); EOS % 1.6 % (1.0-4.0); HEMATOCRIT 40.3 % (37.0-47.0); HEMOGLOBIN 13.2 g/dl (12.0-16.0); LYMPH # 1.7 10*3/uL (1.3-4.4); LYMPH % 19.4 % (27.0-41.0); MEAN CELL VOLUME 93.5 fl (81.0-99.0); MEAN CORPUSCULAR HGB 30.6 pg (27.0-31.0); MEAN CORPUSCULAR HGB CONC 32.8 g/dl (33.0-37.0); MEAN PLATELET VOLUME 10.3 fl (9.6-12.3); MONO # 0.4 10*3/uL (0.1-1.0); NEUT # 6.3 10*3/uL (2.3-7.9); NEUT % 72.8 % (47.0-73.0); PLATELET COUNT AUTOMATED 192 10*3/uL (130-400); RED BLOOD COUNT 4.31 10*6/uL (4.10-5.10); RED CELL DISTRI WIDTH 16.4 % (0-14.5); WHITE BLOOD COUNT 8.6 10*3/uL (4.8-10.8)
[2019-03-02 07:18] LABS: POTASSIUM 4.3 mmol/L (3.5-5.1)
[2019-03-02 07:22] LABS: CREATININE 1.23 mg/dL (0.55-1.02)
[2019-03-02 07:32] LABS: INTERNATIONAL NORM RATIO 1.5 (2.0-3.5)
[2019-03-02 08:00] VITALS: BP 116/48
--- NOTE | 2019-03-02 08:46 | NUR ---
PT COMPLAINED OF CHRONIC LEG PAIN AND BACK PAIN RATED A 6 TO 8. MEDICATED WITH NARCO ORDERED. AMADEO GLASS OVCT-SN FABIO FORTE BSN CLINICAL INSTRUCTOR
--- NOTE | 2019-03-02 11:00 | NUR ---
PT SITTING UP ON THE SIDE OF THE BED AND VOICED MEDICATION WAS EFFECTIVE FOR PAIN. CALL LIGHT WITHIN REACH. AMADEO GLASS - OVCT SN FABIO FORTE CLINICAL INSTRUCTOR BSN
[2019-03-02 12:02] VITALS: BP 119/76
--- NOTE | 2019-03-02 14:00 | NUR ---
PHYSICAL THERAPY PT SCREEN COMPLETED TODAY ON LEVEL 4: BASED ON ASSESSMENT PATIENT IS CURRENTLY UP AD FELECIA IN ROOM AND ABLE TO COMPLETE ALL FUNCTIONAL MOBILITY (I) WITH NO ASSISTANCE. NO PT SERVICES RECOMMENDED AT THIS TIME. THANK YOU FOR REFERRAL MARYURI MORRIS PT
[2019-03-02 16:00] VITALS: BP 104/55
[2019-03-02 20:00] VITALS: BP 108/63; BP 120/64
[2019-03-03] VITALS: BP 128/59
--- NOTE | 2019-03-03 01:11 | NUR ---
24 HR chart check completed.
[2019-03-03 05:46] LABS: BASO # 0.1 10*3/uL (0.0-0.1); BASO % 0.6 % (0.0-1.0); EOS # 0.2 10*3/uL (0.0-0.4); EOS % 1.9 % (1.0-4.0); HEMATOCRIT 40.5 % (37.0-47.0); HEMOGLOBIN 13.1 g/dl (12.0-16.0); LYMPH # 1.7 10*3/uL (1.3-4.4); LYMPH % 16.8 % (27.0-41.0); MEAN CELL VOLUME 93.5 fl (81.0-99.0); MEAN CORPUSCULAR HGB 30.3 pg (27.0-31.0); MEAN CORPUSCULAR HGB CONC 32.3 g/dl (33.0-37.0); MEAN PLATELET VOLUME 10.3 fl (9.6-12.3); MONO # 0.7 10*3/uL (0.1-1.0); MONO % 6.7 % (3.0-9.0); NEUT # 7.3 10*3/uL (2.3-7.9); NEUT % 73.2 % (47.0-73.0); PLATELET COUNT AUTOMATED 187 10*3/uL (130-400); RED BLOOD COUNT 4.33 10*6/uL (4.10-5.10); RED CELL DISTRI WIDTH 16.3 % (0-14.5); WHITE BLOOD COUNT 9.9 10*3/uL (4.8-10.8)
[2019-03-03 06:12] LABS: CREATININE 1.51 mg/dL (0.55-1.02); POTASSIUM 4.1 mmol/L (3.5-5.1)
[2019-03-03 06:20] LABS: INTERNATIONAL NORM RATIO 1.8 (2.0-3.5)
[2019-03-03 12:00] VITALS: BP 108/59; BP 137/56
[2019-03-03 16:00] VITALS: BP 132/81
--- NOTE | 2019-03-03 19:20 | NUR ---
ARRIVED ON SHIFT. INTRODUCED TO PATIENT, BEDSIDE REPORT RECIEVED, WHITE BOARD UPDATED, NO NEEDS VOICED AT THIS TIME.
[2019-03-03 20:00] VITALS: BP 110/60; BP 114/68
--- NOTE | 2019-03-03 23:44 | NUR ---
24 HR chart check completed.
[2019-03-04] VITALS: BP 138/74
--- NOTE | 2019-03-04 00:38 | NUR ---
PATIENT C/O BILATERAL LE PAIN 8/10 ,MEDICATED ORDERED.
[2019-03-04 07:28] LABS: INTERNATIONAL NORM RATIO 2.1 (2.0-3.5)
[2019-03-04] MEDS ORDERED: LASIX40 MG PO (08:19)
--- NOTE | 2019-03-04 11:00 | NUR ---
Projector Booth Operator in to see patient. No new needs or request at this time. Discussed home needs and she denies any home needs at this time. She did discuss a grabber, suggested [employer] or the [employer]. She states they are $20 at [employer]. CM looked up prices and they do range from $7-$20. Patient notified and states she will look at getting one. She states she is not able to bed her right knee as it is bone on bone and that is why she would like to have the grabber. Explained Medicare will only pay for equipment every 5 years so later if she was to need a bigger item Medicare will not cover it. She is agreeable to. When medically stable she will be discharged to home.
--- NOTE | 2019-03-04 14:15 | NUR ---
[facility] Discharge instructions reviewed with patient/family. Patient receptive and verbalizes understanding. Follow-up care arranged. Written instructions given to patient/family. FREDDY HERNANDEZ
== END 2019-03-04 14:15 | disposition home or self-care (01) | DRG 291 ==
LOC: 4E 12:06
PROVIDERS: Internal Medicine; ADMIT Internal Medicine
DX: I13.0 Hypertensive heart and chronic kidney disease with heart failure and stage 1 through stage 4 chronic kidney disease, or unspecified chronic kidney disease (principal); I50.43 Acute on chronic combined systolic (congestive) and diastolic (congestive) heart failure; Z68.41 Body mass index [BMI] 40.0-44.9, adult; I48.2 Chronic atrial fibrillation; J44.9 Chronic obstructive pulmonary disease, unspecified; E66.01 Morbid (severe) obesity due to excess calories; N18.3 Chronic kidney disease, stage 3 (moderate); G89.29 Other chronic pain; M54.5 Low back pain; M06.9 Rheumatoid arthritis, unspecified; E11.22 Type 2 diabetes mellitus with diabetic chronic kidney disease; Z79.4 Long term (current) use of insulin; Z79.01 Long term (current) use of anticoagulants

== ENCOUNTER → 2019-04-11 | Outpatient (CLI) | payer MEDICARE, OTHER ==
[~2019-04-11] MED LIST changes: +BUMETANIDE1 MG PO; +HUMALOG 751 UNIT/0.0 SC; +PROTONIX40 MG PO
[2019-04-11 10:38] LABS: BASO % 0.4 % (0.0-1.0); EOS # 0.1 10*3/uL (0.0-0.4); EOS % 1.2 % (1.0-4.0); HEMATOCRIT 39.3 % (37.0-47.0); HEMOGLOBIN 12.4 g/dl (12.0-16.0); LYMPH # 1.5 10*3/uL (1.3-4.4); LYMPH % 15.3 % (27.0-41.0); MEAN CELL VOLUME 97.5 fl (81.0-99.0); MEAN CORPUSCULAR HGB 30.8 pg (27.0-31.0); MEAN CORPUSCULAR HGB CONC 31.6 g/dl (33.0-37.0); MEAN PLATELET VOLUME 10.1 fl (9.6-12.3); MONO % 10.4 % (3.0-9.0); NEUT % 70.8 % (47.0-73.0); PLATELET COUNT AUTOMATED 208 10*3/uL (130-400); RED BLOOD COUNT 4.03 10*6/uL (4.10-5.10); WHITE BLOOD COUNT 9.9 10*3/uL (4.8-10.8)
[2019-04-11 11:01] LABS: ALBUMIN 2.9 gm/dl (3.1-4.5); CREATININE 1.12 mg/dL (0.55-1.02); FREE T4 1.13 ng/dl (0.76-1.46); POTASSIUM 4.3 mmol/L (3.5-5.1); TOTAL PROTEIN 6.5 gm/dL (6.4-8.2)
[2019-04-11 11:06] LABS: THYROID STIM HORMONE (HS) 0.902 uIU/ml (0.358-4.75)
[2019-04-11 11:12] LABS: VITAMIN D, 25-HYDROXY 36.5 ng/mL (30-100)
== END | disposition home or self-care (01) ==
LOC: LAB 09:53
PROVIDERS: Internal Medicine
DX: I12.9 Hypertensive chronic kidney disease with stage 1 through stage 4 chronic kidney disease, or unspecified chronic kidney disease (principal); E11.22 Type 2 diabetes mellitus with diabetic chronic kidney disease; N18.9 Chronic kidney disease, unspecified; E55.9 Vitamin D deficiency, unspecified; E78.2 Mixed hyperlipidemia; D52.9 Folate deficiency anemia, unspecified; D51.9 Vitamin B12 deficiency anemia, unspecified

== ENCOUNTER 2019-06-07 15:06 | Inpatient (IN) | payer MEDICARE, OTHER ==
[~2019-06-07] VITALS: Ht 163.1 cm; Wt 112.5 kg
[2019-06-07 15:21] VITALS: BP 137/80
[2019-06-07 15:26] LABS: BASO % 0.4 % (0.0-1.0); EOS # 0.1 10*3/uL (0.0-0.4); EOS % 0.9 % (1.0-4.0); HEMATOCRIT 38.2 % (37.0-47.0); HEMOGLOBIN 12.3 g/dl (12.0-16.0); LYMPH # 1.5 10*3/uL (1.3-4.4); LYMPH % 13.6 % (27.0-41.0); MEAN CELL VOLUME 100.3 fl (81.0-99.0); MEAN CORPUSCULAR HGB 32.3 pg (27.0-31.0); MEAN CORPUSCULAR HGB CONC 32.2 g/dl (33.0-37.0); MONO # 0.7 10*3/uL (0.1-1.0); MONO % 5.8 % (3.0-9.0); NEUT # 8.8 10*3/uL (2.3-7.9); NEUT % 78.3 % (47.0-73.0); PLATELET COUNT AUTOMATED 212 10*3/uL (130-400); RED BLOOD COUNT 3.81 10*6/uL (4.10-5.10); RED CELL DISTRI WIDTH 15.9 % (0-14.5); WHITE BLOOD COUNT 11.2 10*3/uL (4.8-10.8)
[2019-06-07 15:36] LABS: ACT PARTIAL THROMBO TIME 33.5 SECONDS (20.0-32.1); INTERNATIONAL NORM RATIO 2.2 (2.0-3.5)
[2019-06-07 15:47] LABS: ALBUMIN 2.9 gm/dl (3.1-4.5); ALKALINE PHOSPHATASE 72 U/L (45-117); BUN 29 mg/dl (7-24); CHLORIDE 108 mmol/L (98-107); CREATININE 1.37 mg/dL (0.55-1.02); POTASSIUM 4.2 mmol/L (3.5-5.1); SGOT/AST 19 IU/L (3-35); SGPT/ALT 23 U/L (12-78); SODIUM 139 mmol/L (136-145); TOTAL PROTEIN 6.4 gm/dL (6.4-8.2)
[2019-06-07 15:53] LABS: TROPONIN I < 0.015 ng/ml (<0.045)
[2019-06-07 18:17] VITALS: BP 140/78
--- NOTE | 2019-06-07 18:22 | NUR ---
PATIENT REFUSED WOUND PHOTOS
[2019-06-07 19:59] VITALS: BP 152/76
[2019-06-07 21:05] VITALS: BP 130/84
--- NOTE | 2019-06-07 21:05 | NUR ---
A 73, admitted to , under the services of Dr. SARAH STEWART,MORGAN Workman with a diagnosis of R, CHF. Chief complaint is SHORTNESS OF BREATH, EDEMA TO BILATERAL LOWER EXTREMITIES. Patient arrived via stretcher from ER. Monitor applied. Initial assessment completed. Vital signs taken and recorded. DR. SARAH STEWART,MORGAN Workman notified of admission to the unit. Orders received. See assessment for past medical history, medications and allergies. Patient and/or family oriented to unit. [facility] visitation policy reviewed. Clothing/patient valuable form completed. ОЛЬГА BLISS
[2019-06-07] MEDS ORDERED: WARFARIN SODIUM3 MG PO (23:12)
[2019-06-07] MEDS ORDERED: METOPROLOL SUCC25 M2 PO (23:52)
[2019-06-08] VITALS: BP 131/73
[2019-06-08] MEDS ORDERED: LOVASTATIN10 MG PO (00:04)
--- NOTE | 2019-06-08 02:57 | NUR ---
MESSAGE LEFT WITH CARDIOLOGY ANSWERING SERVICE REGARDING CONSULT ORDER.
[2019-06-08 07:18] LABS: CREATININE 1.2 mg/dL (0.55-1.02); POTASSIUM 4.9 mmol/L (3.5-5.1)
[2019-06-08 08:00] VITALS: BP 122/78
[2019-06-08 12:00] VITALS: BP 128/82
--- NOTE | 2019-06-08 15:40 | NUR ---
PT REQUESTING PAIN MEDICATION AT THIS TIME FOR COMPLAINTS OF RIGHT LEG PAIN 01/19. GIVEN NORCO PER PRN ORDER. WILL MONITOR FOR EFFECTIVENESS.
[2019-06-08 16:00] VITALS: BP 139/85
--- NOTE | 2019-06-08 16:59 | NUR ---
PER PATIENT, PRN NORCO HAS BEEN EFFECTIVE. NO FURTHER COMPLAINTS. CALL LIGHT IN REACH.
[2019-06-08 20:00] VITALS: BP 142/72
[2019-06-09] VITALS: BP 102/52; BP 115/56; BP 126/65
--- NOTE | 2019-06-09 01:08 | NUR ---
24 HR chart check completed.
--- NOTE | 2019-06-09 05:40 | NUR ---
PATIENT MEDICATED WITH NORCO PER PRN ORDER FOR C/O LEG PAIN. RATED PAIN A 7/10 WITH 10 BEING THE WORST. SEE EMAR. REINFORCED USE OF CALL LIGHT
--- NOTE | 2019-06-09 07:00 | NUR ---
ARRIVED ON SHIFT, INTRODUCED TO PATIENT, NO NEEDS VOICED AT THIS TIME, WHITE BOARD UPDATED. REPORT RECEIVED FROM OFF GOING SHIFT.
[2019-06-09 07:10] LABS: CREATININE 1.66 mg/dL (0.55-1.02)
[2019-06-09 07:20] LABS: POTASSIUM 3.7 mmol/L (3.5-5.1)
[2019-06-09 07:49] LABS: INTERNATIONAL NORM RATIO 1.5 (2.0-3.5)
[2019-06-09 08:00] VITALS: BP 128/62
--- NOTE | 2019-06-09 10:51 | NUR ---
Shift chart check completed.
[2019-06-09 12:00] VITALS: BP 113/59
[2019-06-09 16:00] VITALS: BP 118/68
--- NOTE | 2019-06-09 17:30 | NUR ---
CALL PLACED TO DR. SMITH TO VERIFY HE WANTED BOTH THE NEW 2MG AND THE PATIENTS 3MG COUMADIN, HE VERSED HE DID.
[2019-06-09 20:00] VITALS: BP 100/55
--- NOTE | 2019-06-09 20:20 | NUR ---
PATIENT ASSESSMENT COMPLETED WITHOUT INCIDENT AT THIS TIME. PATIENT DENIED ANY CHEST PAIN OR PRESSURE AT THIS TIME. DRESSING CHANGED ON RIGHT LOWER LEG AT THIS TIME DUE TO LARGE AMOUNT OF DRAINAGE AND PREVIOUS DRESSING WAS FALLING OFF. CALL LIGHT WITHIN REACH, WILL CONTINUE TO MONITOR.
--- NOTE | 2019-06-09 21:33 | NUR ---
DR. SMITH CONTACTED AT THIS TIME FOR PATIENT COMPLAINT OF UPSET STOMACH, ORDERS RECIEVED,SEE EMAR.
--- NOTE | 2019-06-09 22:39 | NUR ---
24 HOUR CHART CHECK COMPLETED.
--- NOTE | 2019-06-09 23:00 | NUR ---
PATIENT STATED THAT PAIN MEDICATION WAS EFFECTIVE AT THIS TIME RATED HER PAIN A 5/10
--- NOTE | 2019-06-09 23:10 | NUR ---
DRESSING CHANGED ON RIGHT LOWER LEG AT THIS TIME DUE TO OPTIFOAM SOAKED THROUGH WITH DRAINAGE, REINFORCED WITH ABD AND WRAPPED WITH RIGOBERTO OVER OPTIFOAM AT THIS TIME.
[2019-06-10 06:28] LABS: CREATININE 1.8 mg/dL (0.55-1.02); POTASSIUM 4.1 mmol/L (3.5-5.1)
[2019-06-10 07:03] LABS: INTERNATIONAL NORM RATIO 1.6 (2.0-3.5)
--- NOTE | 2019-06-10 08:07 | NUR ---
ROXIE ANAYA [id number] Please refer to the physician's history and physical for past medical history, comorbid conditions, and allergies. Diagnosis: SOB,RIGHT HEART FAILURE,CENOUS STASIS ULCER Mono Score: 17,AT RISK WOUND DESCRIPTIONS: Wound Number: 1 Location of the wound: right proximal lower leg Thickness: Full Size: 0.6cm x 0.4cn x 0.1cm Tunneling: none Undermining: none Sinus Tract: none Presence of Exudate: Serous Amount: Moderate Color: Yellow, Red Odor: None Periwound Skin Appearance: Erythema Wound edges: approximated Pain (associated with wound): denied at time of assessment How does patient state this happened? patient states this area started as a "pimple" approximately 1 week ago. Wound Number: 2 Location of the wound: right medial fong Thickness: Full Size: 0.3cm x 0.3cm x 0.1cm Tunneling: none Undermining: none Sinus Tract: none Presence of Exudate: Serous Amount: Moderate Color: Yellow, Red Odor: None Periwound Skin Appearance: Erythema Wound edges: approximated Pain (associated with wound): denied at time of assessment How does patient state this happened? patient states this area started as a "pimple" approximately 1 week ago. Wound Number: 3 Location of the wound: right distal anterior lower leg Thickness: Full Size: 0.3cm x 0.4cm x 0.1cm Tunneling: none Undermining: none Sinus Tract: none Presence of Exudate: Serous Amount: Moderate Color: Yellow, Red Odor: None Periwound Skin Appearance: Erythema Wound edges: approximated Pain (associated with wound): denied at time of assessment How does patient state this happened? patient states this area started as a "pimple" approximately 1 week ago. Bilateral heels red and blanchable. Surface the patient is resting on: Position Pro SKIN PREVENTION RECOMMENDATION: 1. Pressure redistribution support surface as appropriate 2. Elevate heels 3. Remove boots/TEDS every shift and reapply 4. Head of bed 30 degrees as tolerated 5. Assess nutrition and hydration 6. Manage moisture 7. Avoid the use of containment devices while in bed 8. Use absorptive products on surfaces limit layers of linens on bed 9. Turn and reposition every 1-2 hours in bed and every 1 hour in chair as tolerated 10. Weight shifts every 15 minutes while up in chair 11. Offloading with pillows or device to keep heels elevated off bed 12. Monitor skin at least every shift 13. Inspect under medical devices twice a day WOUND TREATMENT RECOMMENDATIONS: Await results from arterial/venous ultrasounds scheduled today. Clarify dressing change orders. Cleanse right lower leg with nss apply sureprep around wounds allow to dry apply therahoney to wound bed and cover with abd sercure with kerlix. Change daily and prn soiling. Heel raiser pro boots while in bed. Patient states that she will follow up with Dr. Gerardo when discharged.
--- NOTE | 2019-06-10 11:33 | NUR ---
Nutritional Support Services Note: Appetite is good for meals, she is eating 100% of NCS diet as ordered. Ht.5'4 Wt.241#. IBW 120#. Venous Stasis Ulcer noted- recommend continued good po intake. Encouraged compliance to diet for weight loss and continued blood sugar control. Will follow as needed. No nutrition intervention needed at this time. Fallon Shearer Rdn Ld
[2019-06-10 12:00] VITALS: BP 111/79
--- NOTE | 2019-06-10 14:30 | NUR ---
Occupational Therapy evaluation completed on 4 with patient demonstrating SOB with min exertion, difficulty with functional mobility and ADls for return home alone. Patient is high complexity level 05508. Recommend OT for ADL training,functional mobility/transfers training in ADls,etc and SNF to enable return home alone at indep level. Thank you. Funmilayo Charles OTR/L
--- NOTE | 2019-06-10 14:36 | NUR ---
Patient agreeable to snf stay and requested [facility]. contacted facility and faxed initial referral, will fax PT EVAL when available. Waiting on review/acceptance.
--- NOTE | 2019-06-10 15:07 | NUR ---
PHYSICAL THERAPY Rosaline completed moderate level of complexity 89140 recomend SNF at discharge PT to work on transfers,amb,balance/safety,strengthening. Debi Prado PT
[2019-06-10 16:00] VITALS: BP 115/54
[2019-06-10 20:00] VITALS: BP 102/62
--- NOTE | 2019-06-10 20:04 | NUR ---
24 HOUR CHART CHECK COMPLETED
--- NOTE | 2019-06-10 20:25 | NUR ---
PATIENT ASSESSMENT COMPLETED AT THIS TIME WITHOUT INCIDENT. PATIENT DENIES ANY CHEST PAIN/PRESSURE OR SHORTNESS OF BREATH AT THIS TIME. BGL 158. CALL LIGHT WITHIN REACH WILL CONTINUE TO MONITOR,
[2019-06-11] VITALS: BP 98/48
[2019-06-11 00:25] VITALS: BP 98/48
--- NOTE | 2019-06-11 04:10 | NUR ---
Upon discharge recommend patient to follow up for wound care in outpatient setting continue current wound care orders at discharging facility.
[2019-06-11 07:10] LABS: INTERNATIONAL NORM RATIO 2.6 (2.0-3.5)
[2019-06-11 07:21] LABS: CREATININE 1.66 mg/dL (0.55-1.02); POTASSIUM 4.1 mmol/L (3.5-5.1)
[2019-06-11 08:00] VITALS: BP 114/66
--- NOTE | 2019-06-11 08:06 | NUR ---
Patient was referred to [facility], 3 night stay complete, hospital exemption complete, however, [facility] has not completed review. Waiting on review/acceptance.
--- NOTE | 2019-06-11 08:35 | NUR ---
MEDICATED WITH PRN PO NORCO FOR RIGHT LEG TENDERNESS AND ACHING.
--- NOTE | 2019-06-11 09:30 | NUR ---
PRN PO NORCO EFFECTIVE FOR RIGHT LEG PAIN, BUT PATIENT NOW HAS HEADACHE.
--- NOTE | 2019-06-11 11:02 | NUR ---
Patient has been accepted to [facility], 3 night stay complete. Patient is ok to go if medically stable for discharge.
--- NOTE | 2019-06-11 11:52 | NUR ---
case management visits with ji, she is referred to [facility], planner/scheduler will follow
[2019-06-11 12:00] VITALS: BP 110/88
--- NOTE | 2019-06-11 12:45 | NUR ---
MEDICATED WITH PRN PO NORCO FOR RIGHT LOWER LEG PAIN.
--- NOTE | 2019-06-11 13:28 | NUR ---
OT NOTE Pt was seen this P.M. 1:1 for 18 minute OT session. Upon arrival pt was sitting upright on the EOB. Pt identified by name and and had no complaints at rest however with activity had complaints of 5/10 low back pain. Pt completed sit to stand transfer from bed level with CGA and use of w/w for UE support. Functional mobility was then completed into the bathroom with CGA and use of w/w, throughout pt required multiple standing rest breaks due to fatigue. Pt transferred on/off standard commode with CGA and use of grab bar for UE support. then challenged pt's static standing tolerance needed for increased I in self care tasks and functional transfers, pt was able to tolerate aprox 3 minutes at a time before sitting due to fatigue. Pt then transferred back into bed sit to supine with moda x 2. There she was left with call light in hand, tray table in place, and bed alarm activated for safety. LARA Trinidad
--- NOTE | 2019-06-11 13:33 | NUR ---
PHYSICAL THERAPY TREATMENT TIME: 1:10 PM - 1:30 PM Patient presented to therapy in sitting at EOB with 2 visitors in the room with patient. Patient reports of 5/10 pain in the low back. Patient
--- NOTE | 2019-06-11 14:30 | NUR ---
PODIATRY WAS IN TO APPLY BILATERAL UNNA BOOTS.
[2019-06-11 16:00] VITALS: BP 118/61
--- NOTE | 2019-06-11 19:46 | NUR ---
24 HOUR CHART CHECK COMPLETED
[2019-06-11 20:00] VITALS: BP 114/66
--- NOTE | 2019-06-11 23:55 | NUR ---
SPOKE WITH DR. SANDY AT THIS TIME IN REFERENCE TO PATIENT COMPLAINT OF INCREASING PAIN IN HER LEFT FOOT, ANKLE AND LOWER LEG FROM THE OTILIA BOOT WHICH WAS PLACED ON EARLIER TODAY. ORDERS RECEIVED TO REMOVE LEFT OTILIA BOOT ONLY AND THAT PODIATRY WOULD REASSESS ON MONDAY.
[2019-06-12] VITALS: BP 102/56
--- NOTE | 2019-06-12 00:10 | NUR ---
LEFT OTILIA BOOT REMOVED AT THIS TIME, PATIENT STATED THAT HER FOOT FELT BETTER. IT WAS NOTED THAT PATIENT FOOT HAD 3+ EDEMA AND HER ANKLE WAS REDENED AND HAD INDENTATIONS FROM THE WRAPPING THAT WAS IN PLACE.
--- NOTE | 2019-06-12 05:22 | NUR ---
PRN PAIN MEDICATION GIVEN AT THIS TIME FOR PAIN IN LEFT FOOT AND LEG 11/19, A&O X3.
--- NOTE | 2019-06-12 06:15 | NUR ---
PAIN MEDICATION EFFECTIVE PER PATIENT.
[2019-06-12 07:00] LABS: INTERNATIONAL NORM RATIO 2.7 (2.0-3.5)
[2019-06-12 08:00] VITALS: BP 104/56
[2019-06-12 12:00] VITALS: BP 96/61
--- NOTE | 2019-06-12 12:09 | NUR ---
PHYSICAL THERAPY TREATMENT TIME: 11:50 AM - 12:10 PM Patient presented to therapy in sitting at EOB with no bed alarm on and report of LBP of /. Patient gives informed consent for treatment. Patient was identified by name and on wristband. Patient performed sit to stand from EOB with SBA. Patient ambulated with Wh Walker and CGA X 1 for 50' x 1 with no LOB , but she did have some increased pain in the low back during gait. Patient transferred on and off commode with SBA. Patient's greatest difficulty is due to LBP that increases significantly during ambulation. Patient was left sitting on EOB with call light within reach. Patient has very slow bill due to the back pain. Patient was 1:1 with this HAND ALTERATIONS TAILOR for 20 minutes. KESHA REYNOLDS HAND ALTERATIONS TAILOR
--- NOTE | 2019-06-12 12:47 | NUR ---
NORCO 5/325 MG GIVEN FOR C/O PAIN TO BLE,12/19.
--- NOTE | 2019-06-12 14:09 | NUR ---
PAIN MEDICATION EFFECTIVE PER PT.
--- NOTE | 2019-06-12 14:56 | NUR ---
PHYSICAL THERAPY TREATMENT TIME: 1:40 PM - 1:55 PM Patient presented to therapy in sitting on EOB. Patient sit to stand and SPT to Wheelchair with SBA. Patient wheeled to stairway by this CLINICAL STAFF RN. Patient sit to stand out of Wheelchair with SBA. Patient ascended and descended 1 step x 2 times with CGA X 1 with patient using unilateral standard cane held in R hand. Patient unable to ascend any more steps at this time. Patient transferred out of Wheelchair to sitting on EOB with SBA. Patient was left sitting on EOB with call light within reach and commode at bedside, as well as tray table near patient. Patient was 1:1 with this CLINICAL STAFF RN for 15 minutes total. KESHA REYNOLDS CLINICAL STAFF RN
--- NOTE | 2019-06-12 15:34 | NUR ---
DR SMITH ROUNDED AND SEEN PT.PT NOTIFIED DR SMITH THAT HER HOME MED THAT WAS LOST HAD BEEN FOUNF IN PHARMACY.ORDER RECIEVED.
[2019-06-12 16:00] VITALS: BP 113/98
[2019-06-12 20:00] VITALS: BP 119/62
[2019-06-13] VITALS: BP 115/53
--- NOTE | 2019-06-13 01:32 | NUR ---
24 HR chart check completed.
--- NOTE | 2019-06-13 03:03 | NUR ---
SLEEPING NO DISTRESS NOTED
--- NOTE | 2019-06-13 07:28 | NUR ---
ROXIE ANAYA [id number] Please refer to the physician's history and physical for past medical history, comorbid conditions, and allergies. Diagnosis: SOB,RIGHT HEART FAILURE,CENOUS STASIS ULCER Mono Score: 17,AT RISK WOUND DESCRIPTIONS: Wound Number: 5 Location of the wound: right breast Type of wound: fungal Thickness: Partial Size: 1.0cm x 3.5cm x 0.1cm Tunneling: none Undermining: none Sinus Tract: none Presence of Exudate: Serosanguineous Amount: Light Color: Red Odor: Musty Periwound Skin Appearance: Normal Wound edges: approximated Pain (associated with wound): none at time of assessment How does patient state this happened? pt stated this area has been there but it got a little bigger Wound Number: 6 Location of the wound: coccyx Type of wound: stage 2 Thickness: Partial Size: 1.0cm x 0.5cm x 0.1cm Tunneling: none Undermining: none Sinus Tract: none Presence of Exudate: Sanguineous Amount: Light Color: Red Odor: None Periwound Skin Appearance: Normal Wound edges: approximated Pain (associated with wound): none at time of assessment How does patient state this happened? pt stated that is open and closed often Surface the patient is resting on: Position Pro SKIN PREVENTION RECOMMENDATION: 1. Pressure redistribution support surface as appropriate 2. Elevate heels 3. Remove boots/TEDS every shift and reapply 4. Head of bed 30 degrees as tolerated 5. Assess nutrition and hydration 6. Manage moisture 7. Avoid the use of containment devices while in bed 8. Use absorptive products on surfaces limit layers of linens on bed 9. Turn and reposition every 1-2 hours in bed and every 1 hour in chair as tolerated 10. Weight shifts every 15 minutes while up in chair 11. Offloading with pillows or device to keep heels elevated off bed 12. Monitor skin at least every shift 13. Inspect under medical devices twice a day WOUND TREATMENT RECOMMENDATIONS: Wheelchair cushion when oob. Stage 2 guidelines: Cleanse coccyx with nss and apply sureprep around the wound hydrogel to wound bed and cover with optifoam gentle daily and prn for soiling. Continue nystatin powder to right breast.
[2019-06-13 07:37] LABS: INTERNATIONAL NORM RATIO 2.5 (2.0-3.5)
--- NOTE | 2019-06-13 07:45 | NUR ---
PHYSICAL THERAPY Patient seen this am 1:1 for therapy visit and was sitting up on EOB upon therapist arrival. Patient identified by name / and reports no c/o's of pain at this time. Patient was pleasant transfering sit to stand SBA and ambulating 25'x 1 to bathroom, use of walker, CGA, demonstrating slow bill with decreased stride. Patient was very cautious during all turns while ambulating additional 40'x 1, wh walker, CGA, demonstrating "slouched" standing posture. Patient needed v/c to stand tall upon returning to EOB sit with mild fatigue. Patient also demonstrates incresed unsteady gait pattern when fatigue sets in and needed brief seated rest prior to completing seated B LE therex, all planes, x 15 reps each to increase LE strength. Patient remained EOB sit with call light, tray table and telephone as breakfast arrived. Will continue per POC as tolerated, total treatment time 16 minutes. Kanu Mayberry, GRAPHIC DESIGN ASSISTANT
--- NOTE | 2019-06-13 07:57 | NUR ---
OT NOTE Pt was seen this A.M. 1:1 for 27 minute OT session. Upon arrival pt was sitting upright on the EOB. Pt identified by name and and had no complaints at this time. While sitting EOB pt completed BUE towel exercises over all planes of motion for 1 X 10 to increase UE strength needed to increase and restore maximum functional use. Pt then completed multiple sit to stand transfers from bed level with CGA and use of w/w for UE support. Challenged pt's static standing tolerance needed for increased I in self care tasks and functional transfers, pt was able to tolerate aprox 3 minutes at a time before sitting due to fatigue. Functional mobility was then completed into the bathroom with CGA and use of w/w. There she transferred on/off standard commode with CGA and use of grab bar for UE support. Functional mobility was then completed back to the EOB where she was left sitting upright with call light in hand, tray table in place, and phone in reach. Continue with rec D/C plan to SNF. LARA Trinidad
[2019-06-13 08:00] VITALS: BP 118/58
--- NOTE | 2019-06-13 08:30 | NUR ---
Updated clinicals faxed to [facility] for review. Patient has been accepted, 3 night stay complete. Patient is ok to go when medically stable for discharge.
--- NOTE | 2019-06-13 08:40 | NUR ---
Notified Dr. Sheth patient has been accepted to [facility] and can be discharged when medically stable.
--- NOTE | 2019-06-13 09:21 | NUR ---
NORCO GIVEN AT THIS TIME PER PRN ORDER FOR C/O LOWER BACK PAIN. RATES PAIN 8/10. CHRONIC PAIN PER PT. WILL MONITOR EFFECTIVENESS.
--- NOTE | 2019-06-13 10:30 | NUR ---
General Merchandise Salesperson in to see patient. No new needs or request at this time. When medically stable she will be discharged to [facility]. network planner following.
--- NOTE | 2019-06-13 10:32 | NUR ---
NEGRA EFFECTIVE PER PT.
--- NOTE | 2019-06-13 10:44 | NUR ---
PODIATRY IN TO SEE PATIENT REGARDING CONSULT.
[2019-06-13 12:00] VITALS: BP 106/62
--- NOTE | 2019-06-13 13:55 | NUR ---
PHYSICAL THERAPY Patient seen this pm 1;1 for therapy visit and was sitting up on EOB upon therapist arrival. Patient identified by name / and reports feeling a little light headed at times this afternoon. Patient stated she had walked several times to the bathroom and reports no c/o's pain. Patient transfers sit to stand CGA and ambulated with use of st cane this session, 20'x 1, CGA, demonstrating unsteady gait pattern with POOR step sequence. Patient needed v/c to improve safe step sequence to prevent risk of falls. Patient instructed to use wh walker at home to improve gait safety, however patient stated her home is too narrow in most places to get around, so she will continue to use her cane. Patient also fatigues quickly and returned to EOB sit. Patient remained EOB with call light, tray table, and telephone. Will continue per POC as tolerated, total treatment time 14 minutes. Kanu Mayberry, PLUGGER MAN
[2019-06-13 14:00] VITALS: BP 106/62
[2019-06-13 16:00] VITALS: BP 125/98
--- NOTE | 2019-06-13 16:49 | NUR ---
OCCUPATIONAL THERAPY CO-SIGN I approve of the Occupational Therapy notes written above. DIANA GUAJARDO OTR/Tonny
[2019-06-13 20:00] VITALS: BP 128/71
--- NOTE | 2019-06-13 20:30 | NUR ---
PATIENT REFUSING HEEL PROTECTORS WHILE IN BED, STATES THAT THEY MAKE HER LEGS TOO HEAVY TO MOVE
[2019-06-14] VITALS: BP 112/63
--- NOTE | 2019-06-14 04:47 | NUR ---
24 HR chart check completed.
--- NOTE | 2019-06-14 08:15 | NUR ---
Notified Dr. Sheth patient has been accepted to [facility] and can be discharged when medically stable. Plan is to discharge patient today.
--- NOTE | 2019-06-14 09:05 | NUR ---
DIGOXIN HELD FOR HR 54. PER PT SHE ONLY TALES DIGOXIN "EVERY OTHER DAY AT HOME".WILL NOTIFY SARAH WHEN HE ROUNDS.
--- NOTE | 2019-06-14 09:07 | NUR ---
NORCO 5/325 MG GIVEN FOR C/O PAIN TO BLE,12/19. HELD DIGOXIN AT THIS TIME FOR HR CONSISTENTLY IN 50-60'S.
--- NOTE | 2019-06-14 09:45 | NUR ---
PHYSICAL THERAPY Patient seen this am 1:1 for therapy visit and was sitting up on EOB upon therapist arrival. Patient identified by name / and voices chronic mild R upper arm pain that seems to come and go. Patient transfers sit to stand CGA and feels more comfortable ambulating with use of wh walker, CGA, 45'x 2, demonstrating slow bill, decreased stride and very cautious step sequence during all turns for fear of falling. Patient also fatigues quickly, requiring brief seated rest break between gait trials. Patient able to take 5-6 backward steps, unsteady step sequence and returned to EOB sit following all treatment. Patient remained EOB with call light, tray table, telephone and BSC next to bed. Will continue per POC as tolerated, total treatment time 17 minutes. Kanu Mayberry, CERAMICS TEST ENGINEER
[2019-06-14] MEDS ORDERED: DIGOX125 MCG PO (10:48)
[2019-06-14 12:00] VITALS: BP 115/69
--- NOTE | 2019-06-14 12:26 | NUR ---
Patient is discharged to [facility]; Transportation scheduled for after 2 PM with [facility] ambulette. Acacia MALLOY notified.
--- NOTE | 2019-06-14 13:49 | NUR ---
PT REFUSING D/C PHOTOS AT THIS TIME.
--- NOTE | 2019-06-14 14:15 | NUR ---
Discharge instructions reviewed with patient/family. Patient receptive and verbalizes understanding. Follow-up care arranged. Written instructions given to patient/family. ESTEFANIA BISHOP
--- NOTE | 2019-06-14 14:22 | NUR ---
REPORT CALLED TO SHYAM AT [facility].
--- NOTE | 2019-06-14 14:48 | NUR ---
PHYSICAL THERAPY CO-SIGN I approve of the Physical Therapy notes written above. Debi Prado PT
== END 2019-06-14 14:15 | disposition other institution (70) | DRG 682 ==
LOC: ED 15:06 → 4E 18:23 → EDHOLD 18:23 → 4E 20:53
PROVIDERS: Emergency Medicine; ADMIT Internal Medicine
DX: N17.0 Acute kidney failure with tubular necrosis (principal); I50.33 Acute on chronic diastolic (congestive) heart failure; I13.0 Hypertensive heart and chronic kidney disease with heart failure and stage 1 through stage 4 chronic kidney disease, or unspecified chronic kidney disease; I48.21 Permanent atrial fibrillation; Z68.41 Body mass index [BMI] 40.0-44.9, adult; R62.7 Adult failure to thrive; N18.3 Chronic kidney disease, stage 3 (moderate); I87.2 Venous insufficiency (chronic) (peripheral); I50.813 Acute on chronic right heart failure; J43.2 Centrilobular emphysema; E11.22 Type 2 diabetes mellitus with diabetic chronic kidney disease; M06.9 Rheumatoid arthritis, unspecified; K21.9 Gastro-esophageal reflux disease without esophagitis; Z96.652 Presence of left artificial knee joint; M47.816 Spondylosis without myelopathy or radiculopathy, lumbar region; E66.01 Morbid (severe) obesity due to excess calories; G89.29 Other chronic pain; Z88.2 Allergy status to sulfonamides; Z88.6 Allergy status to analgesic agent; Z88.7 Allergy status to serum and vaccine; Z91.041 Radiographic dye allergy status; Z98.49 Cataract extraction status, unspecified eye; Z82.49 Family history of ischemic heart disease and other diseases of the circulatory system; Z80.8 Family history of malignant neoplasm of other organs or systems; Z82.5 Family history of asthma and other chronic lower respiratory diseases

== ENCOUNTER 2019-07-18 22:26 | Inpatient (IN) | payer MEDICARE, OTHER ==
[~2019-07-18] VITALS: Ht 165.1 cm; Wt 107.5 kg
[~2019-07-18 22:26] MED LIST changes: +DIGOX125 MCG PO; +LOVASTATIN10 MG PO; +METOPROLOL SUCC25 M2 PO; +WARFARIN SODIUM3 MG PO
[2019-07-18 22:53] VITALS: BP 70/52
[2019-07-18 23:32] LABS: BILIRUBIN NEGATIVE (NEGATIVE); BLOOD NEGATIVE (NEGATIVE); CLARITY SL CLOUDY (CLEAR); COLOR YELLOW (YELLOW); GLUCOSE NEGATIVE (NEGATIVE); KETONE NEGATIVE (NEGATIVE); SPECIFIC GRAVITY 1.015 (1.005-1.030)
[2019-07-18 23:33] LABS: LEUKO ESTERASE 2+ (NEGATIVE); NITRITE NEGATIVE (NEGATIVE); UROBILINOGEN 0.2 E.U./dl (0.2-1.0)
[2019-07-18 23:36] LABS: BACTERIA 1+
[2019-07-18 23:51] LABS: HEMATOCRIT 38.6 % (37.0-47.0); MEAN CELL VOLUME 102.7 fl (81.0-99.0); MEAN CORPUSCULAR HGB 31.9 pg (27.0-31.0); MEAN CORPUSCULAR HGB CONC 31.1 g/dl (33.0-37.0); MEAN PLATELET VOLUME 10.5 fl (9.6-12.3); PLATELET COUNT AUTOMATED 232 10*3/uL (130-400); RED BLOOD COUNT 3.76 10*6/uL (4.10-5.10); RED CELL DISTRI WIDTH 16.6 % (0-14.5); WHITE BLOOD COUNT 12.2 10*3/uL (4.8-10.8)
[2019-07-19 00:01] VITALS: BP 61/25
[2019-07-19 00:02] LABS: INTERNATIONAL NORM RATIO 2.8 (2.0-3.5)
[2019-07-19 00:09] LABS: ALBUMIN 2.9 gm/dl (3.1-4.5); CREATININE 2.21 mg/dL (0.55-1.02); POTASSIUM 3.6 mmol/L (3.5-5.1); TOTAL PROTEIN 6.5 gm/dL (6.4-8.2)
[2019-07-19 00:14] LABS: PLATELET SUFFICIENCY NORMAL (NORMAL); TOTAL CELLS COUNTED 100 #CELLS
[2019-07-19 00:18] LABS: THYROID STIM HORMONE (HS) 7.18 uIU/ml (0.358-4.75); TROPONIN I 0.048 ng/ml (<0.045)
[2019-07-19 00:32] VITALS: BP 64/28
[2019-07-19 00:52] VITALS: BP 59/40
[2019-07-19 01:55] VITALS: BP 51/20
--- NOTE | 2019-07-19 01:55 | NUR ---
Time: 154 A 73 year old female admitted to 5E under services of NILA CHOI MD. Pt. arrived via bed from ER. Chief complaint: CHANGE IN MENTAL STATUS, MORE LETHARGIC, NOT AMBULATING.. VS OBTAINED. O2 6L NC IN USE PULSE OX 93%. PATIENT UNRESPONSIVE TO VOICE, PUPILS NOT REACTIVE AT THIS TIME. PATIENT ONLY MOANING/GRUNTY WITH RESP. 40BPM AND USING ACCESSORY MUSCLES. DIMINISHED LUNG SOUNDS. PT. PERICARE GIVEN FOR LOOSE BROWN STOOL. WOUNDS ON LOWER LEGS DRESSED. PER FAMILY WAS BEING [facility]RE[facility] AND WAS AMBULATOR AND TALKING JUST EARLIER TODAY. PT. NOT RESPONDING TO FAMILY AT THIS TIME. CHE FAROOQ J
--- NOTE | 2019-07-19 02:30 | NUR ---
CALLED DR. FLYNN AND NOTIFIED HER OF PATIENT CONDITION AND ORDERS RECEIVED.
--- NOTE | 2019-07-19 02:35 | NUR ---
CALLED DR. FLYNN AND NOTIFIED HER OF LACTIC ACID. NO FURTHER ORDERS.
--- NOTE | 2019-07-19 02:51 | NUR ---
SPOKE WITH FAMILY AND THEY ARE AGREEABLE TO IV FLUIDS AND MEDICATIONS FOR PT.
--- NOTE | 2019-07-19 03:19 | NUR ---
FAMILY OUT TO DESK SISTER AND [place] [facility] AND THEY DO NOT WANT ANYTHING DONE FOR PATIENT NO IV FLUIDS OR ANTIBIOTICS JUST TO KEEP HER COMFORTABLE.
--- NOTE | 2019-07-19 04:10 | NUR ---
TURN AND CHECK FOR INCONTINENCE. TEMP RECHECK 101.2 TYMPANICALLY. PT. RESP. CONTINUE TO BE TACHYPNEAC O2 HIGHFLOW AT 10 L AND PULSE OX 88-91%. FAMILY REMAINS AT BEDSIDE.
--- NOTE | 2019-07-19 04:31 | NUR ---
FAMILY REFUSING LAB DRAW FO REPEAT LACTIC ACID.
[2019-07-19] MEDS ORDERED: COUMADIN3 M1 PO (04:54)
[2019-07-19] MEDS ORDERED: COUMADIN2 M1 PO (04:54)
[2019-07-19] MEDS ORDERED: BUMETANIDE2 MG PO (04:57)
[2019-07-19] MEDS ORDERED: ZOLOFT25 MG PO (04:58)
[2019-07-19] MEDS ORDERED: NORCO 5-325 TA1 EACH PO (05:00)
[2019-07-19] MEDS ORDERED: ZESTRIL5 MG PO (05:01)
[2019-07-19] MEDS ORDERED: CHOLECALCIFEROL1 GM MC (05:09)
--- NOTE | 2019-07-19 05:20 | NUR ---
CHECKED ON PATIENT AND BREATHING HAS DECREASED TO 10BPM FAMILY AT BEDSIDE.
--- NOTE | 2019-07-19 05:37 | NUR ---
NURSING EDUCATIONAL THERAPIST NOTIFIED OF PATIENT .
--- NOTE | 2019-07-19 05:39 | NUR ---
CALLED DR. FLYNN AND NOTIFIED HER OF PATIENT .
--- NOTE | 2019-07-19 05:45 | NUR ---
CALLED ONE [facility] AND PATIENT WAS RELEASED REFERENCE NUMBER [id number] AND SPOKE WITH ZORAIDA.
--- NOTE | 2019-07-19 06:06 | NUR ---
As patient's occurred less than 24 hours after admission, [facility] Coroner's Lockstitch Cup Setter, Siria, notified of . Case reviewed. Body released to go to the home of family's choice.
--- NOTE | 2019-07-19 06:15 | NUR ---
NURSING FABRICATION TECHNICIAN HERE ON FLOOR AND HELPED WITH PROTOCOL. FAMILY DECIDED THEY DID NOT WANT TO TAKE HER CLOTHING HOME STATED "I'VE CHANGED MY MIND I'M NOT TAKING HER CLOTHES HOME YOU CAN JUST THROW THEM AWAY." FAMILY WENT HOME. FAMILY TOOK PATIENTS GLASSES HOME WITH THEM.
--- NOTE | 2019-07-19 06:30 | NUR ---
POST MORTUM CARE GIVEN. HEPLOCK REMOVED. CATHETER INTACT.
--- NOTE | 2019-07-19 07:00 | NUR ---
[facility] CALLED AND THEY WILL BE COMING BETWEEN 730AM AND 8AM.
--- NOTE | 2019-07-19 07:15 | NUR ---
[facility] HERE AND PATIENT PLACED ON CART AND DISCHARGED TO [facility] IN THEIR CARE. WITH DENTURES.
== END 2019-07-19 07:15 | disposition expired | DRG 871 ==
LOC: ED 22:26 → EDHOLD 07-19 01:20 → 5E 07-19 01:33
PROVIDERS: Emergency Medicine; ADMIT Internal Medicine
DX: A41.9 Sepsis, unspecified organism (principal); R65.21 Severe sepsis with septic shock; N17.9 Acute kidney failure, unspecified; Z51.5 Encounter for palliative care; Z66 Do not resuscitate; Z96.652 Presence of left artificial knee joint; Z88.6 Allergy status to analgesic agent; Z88.7 Allergy status to serum and vaccine; Z88.8 Allergy status to other drugs, medicaments and biological substances; Z98.42 Cataract extraction status, left eye; Z98.41 Cataract extraction status, right eye